=== PATIENT | female | born 1980 | race American Indian/Alaskan Native ===

== ENCOUNTER 2019-07-29 16:15 | Outpatient (CLI) | payer BC ==
--- NOTE | 2019-07-29 16:51 | XRay Report ---
CHEST 2 VIEWS INDICATION / CLINICAL INFORMATION: BRONCHITIS. COMPARISON: None available. FINDINGS: SUPPORT DEVICES: None. HEART / MEDIASTINUM: No significant abnormality. LUNGS / PLEURA: No significant pulmonary or pleural abnormality. No pneumothorax. ADDITIONAL FINDINGS: No significant additional findings. IMPRESSION: 1. No acute findings. Signer Name: Santiago Pastrana MD Signed: 07/29/2019 4:47 PM Workstation Name: [id number]
== END 2019-07-29 16:16 | disposition home or self-care (01) ==
LOC: SPVIMAG 16:15
PROVIDERS: ATTEND Internal Medicine
DX: J20.8 Acute bronchitis due to other specified organisms (principal)
CPT/HCPCS: 71046